=== PATIENT | male | born 1945 | race Caucasian/White ===

== ENCOUNTER 2024-11-04 13:03 | Outpatient (AMB) | payer OTHER, SELFPAY ==
[2024-11-04 13:18] VITALS: BP 130/70; PULSE 44; RESP 17; TEMP 36.6; O2SAT 97; BMI 31.3
--- NOTE | 2024-11-04 13:18 | MHC.OFFWIV ---
Intake Vital Signs 11/04/24 13:18 Height 5 ft 10 in Weight 218 lb BMI 31.3 BP 130/70 Blood Pressure Location Rt brachial Position Sitting Respiration 17 Pulse 44 L Pulse Source Pulse Oximeter Temp 97.8 F Temp Source Oral Pulse Oximetry (%) 97 Oxygen Delivery Method Room Air Intake Visit Reasons: EP Blood in urine Intake Note: Pt is here today c/o blood in urine ? patient thinks is a kidney stone Patient Tobacco Use Status: Never used Tobacco Allergies No Known Allergies Allergy (Verified 11/04/24 13:21) HPI HPI Comments History of Present Illness Details History of Present Illness - The patient is a 78-year-old male presenting with hematuria. - Hematuria onset was the previous day. - Patient has a history of renal calculi, with known episodes of passing small stones over the past 4-5 years, last occurring about a year ago. he did not seek medical attention for these episodes and passed them at home. - The patient describes the current discomfort as consistent with previous kidney stone experiences. - There is no significant back or flank pain currently; discomfort is localized towards the lower abdomen with urination. - No lithotripsy procedures have been required historically as stones were passed spontaneously. - He does not smoke cigarettes, and never has smoked cigarettes, he also was never in [place]/exposed to agent orange - he does not recall any cardiac issues or ever being told he had bradycardia, he states he has a hx of SVT and maybe something else, possibly RBBB, seen on EKG when he was younger. He denies chest pain, back pain or arm pain, nausea, sweating. - The patient reported challenges in physical activities, connected neither to dizziness nor lightheadedness, indicating reduced physical strength. - Has not seen a doc in many years, has an appt to establish care with [facility] in February. 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 He does not take any medications on a daily basis, just and occasional aspirin Physical Exam General: Cooperative, healthy appearing, comfortable, no acute distress and well developed Orientation: Patient oriented x3 Limitations: No limitations Head: Normal to inspection Ears: Hearing grossly normal bilaterally Nose: Normal external nose present Face and sinus: Normal facial exam Eyes: Appearance normal, both eyes and all related structures Neck: Normal visual inspection and Yes full ROM Respiratory: Normal respiratory effort and able to speak in complete sentences. Clear to auscultation bilaterally Cardiovascular: Regular rate and rhythm. Normal S1 and S2 Skin: No rashes or lesions noted Neuro: Patient oriented x3 Extremities: Normal to inspection [facility] Social History Patient Tobacco Use Status: Never used Tobacco Review of Systems Const All systems reviewed & are unremarkable except as noted in HPI and below Physical Exam Vital Signs: Last Vital Signs Temp 97.8 F 11/04/24 13:18 Pulse 44 L 11/04/24 13:18 Resp 17 11/04/24 13:18 BP 130/70 11/04/24 13:18 Pulse Ox 97 11/04/24 13:18 Oxygen Delivery Method Room Air 11/04/24 13:18 BMI result Body Mass Index 31.3 Office Procedures EKG 86144-[id number], Complete Results AMB Urinalysis, Automated UA Leukoctes 0 Arvind/uL Last Edit by Sierra Crocker CMA on 11/04/24 13:28 UA Nitrite Negative Last Edit by Sierra Crocker CMA on 11/04/24 13:28 UA Urobilinogen 0.2 mg/dL Last Edit by Sierra Crocker CMA on 11/04/24 13:28 UA Protein 30 mg/dL Last Edit by Sierra Crocker CMA on 11/04/24 13:28 UA pH 6.0 Last Edit by Sierra Crocker CMA on 11/04/24 13:28 UA Blood 200 Augusto/uL Last Edit by Sierra Crocker CMA on 11/04/24 13:28 UA Specific [place] 1.020 Last Edit by Sierra Crocker CMA on 11/04/24 13:28 UA Ketone Negative Last Edit by Sierra Crocker CMA on 11/04/24 13:28 UA Bilirubin 0 mg/dL Last Edit by Sierra Crocker CMA on 11/04/24 13:28 UA Glucose 0 mg/dL Last Edit by Sierra Crocker CMA on 11/04/24 13:28 Results Reviewed Results Reviewed: Laboratory Last Values Urine pH (Auto) 6.0 11/04/24 13:18 Specific [place] (Auto) 1.020 11/04/24 13:18 Urine Protein (Auto) 30 mg/dL 11/04/24 13:18 Glucose (UA)(Auto) 0 mg/dL 11/04/24 13:18 Urine Ketones (Auto) Negative 11/04/24 13:18 Urine Blood (Auto) 200 Augusto/uL 11/04/24 13:18 Urine Nitrite (Auto) Negative 11/04/24 13:18 Urine Bilirubin (Auto) 0 mg/dL 11/04/24 13:18 Urine Urobilinogen (Auto) 0.2 mg/dL 11/04/24 13:18 Leukocyte Esterase (Auto) 0 Arvind/uL 11/04/24 13:18 Assessment & Plan Assessment & Plan (1) Hematuria: Code(s): R31.9 - Hematuria, unspecified Qualifiers: Hematuria type: unspecified type Qualified Code(s): R31.9 - Hematuria, unspecified Plan: Urinalysis is negative for infection, I have no suspicion there is an infection based on his story. My suspicions is more likely a kidney stone with 3+ blood on the urinalysis, as well as based on his history. recommended patient seek emergent medical attention if he is unable to pass urine, if his pain gets worse or if he develops a fever. (2) Bradycardia: Code(s): R00.1 - Bradycardia, unspecified Plan: pulse ox reflected a heart rate of 42, EKG reflects a rate of 67 with PVCs, auscultation was clear he was not at a rate of 40, and was likely more in the 60s. I am thinking the PVCs may have thrown off the pulse ox. EKG shows sinus rhythm with occasional PVCs, a right bundle branch block rate of 67 beats per minute. no acute ST or T-wave changes. as he is not currently having any chest pain, shortness of breath, headaches dizziness or other symptoms, right bundle branch block is likely old and not an indication of an [place]. I was able to move his primary care doctor's appointment up from February 08 next week so he can get a thorough health assessment as well as follow up on both of these issues Orders: Orders AMB Urinalysis Automated Today Z13.9 - Encounter for screening, unspecified Coding Level of Care Code Est Pt Level 4 (49260) Diagnoses Hematuria, unspecified type R31.9 Hematuria type: unspecified type Bradycardia R00.1 CPT Codes EKG - CPT: 35938-[id number], Complete ([id number])
== END 2024-11-04 14:22 | disposition home or self-care (01) ==
PROVIDERS: Visit Provider Physician Assistant
DX: R31.9 Hematuria, unspecified (principal); R00.1 Bradycardia, unspecified; Z13.9 Encounter for screening, unspecified

== ENCOUNTER → 2024-11-04 13:03 | Outpatient (BNVA) | payer OTHER, SELFPAY | DX: R31.9 Hematuria, unspecified (principal); R00.1 Bradycardia, unspecified | CPT/HCPCS: 81003; 93005 ==

== ENCOUNTER 2024-11-17 08:46 | Outpatient (AMB) | payer OTHER, SELFPAY ==
--- NOTE | 2024-11-17 08:48 | A.OFFPC_ITS ---
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: Patient has dentist HPI HPI Comments History of Present Illness Details 78-year-old male presents to establish c are. Prior PCP? - Dr. Roxanna Swanson, [facility] Last office visit/CPE/labs - About a year ago Acute issue(s) - Arthritic shoulders: He had PT emelyn joshi and August 2024. Takes Aleve or Ibuprofen twice daily with significant relief - Diminished hearing bilaterally progres sively worsened for the past 4-5 years. Does not wear hearing aides. Has never had a hearing test - Hypothyroidism: On Levothyroxine 75 mc g daily - Intermittent swelling to bilateral low er legs/ankles especially with wearing socks for a long time Past Medical History - Hypothyroidism, SVT, bradycardia, [place] turia, arthritic shoulders, spine twist inside of pelvis, bronchitis, mononucleosis, acute infectious hepatitis, measles, chicken pox, swelling of bilat lower legs/ankles, self-diagnosed ADHD and audio procdessing disorder 20-25 years ago Surgical History - Right total hip replacement - Surgical repair of blocked intenstine (2013 at [facility]) Family History - None (patient is adopted and does not know family history) Social History - Nonsmoker. Does not vape. Drinks 4 oz red night 5 nights weekly. Denies recreational drug use - Has been making healthy dietary choice s, however, he consumes significant amount of peanut butter, chips, and cheese. Exercises routinely. Generally sleep well Health maintenance - Last eye exam was 2-[address] El, [facility]. Record not available. He will sign a release for his PCP to obtain his eye record - Last dental visit was 4 months ago. He sees his dentist every 6 months - Last tetanus vaccine was in 1971 or ; declines the vaccine today - He notes that he is up-to-date on the flu vaccine - He notes that he is up-to-date on the pneumonia vaccines - He has not been vaccinated for shingle s; encouraged to get the vaccines. He may get the vaccines from the local pharmacy - Last colonoscopy was about 8-9 years a go, unsure of practice name but notes likely [facility] Medical: normal. Referred to [facility] gastroenterology for a colonoscopy [facility] Medical History (Updated 11/17/24 @ 11:31 by Virgilio Salazar CNP) Spine disorder Swelling Arthritis FH: thyroid disease SVT (supraventricular tachycardia) Surgical History (Updated 11/17/24 @ 09:16 by Sandee Haskins MA) History of right hip replacement Social History Housing: House Patient Tobacco Use Status: Never used Tobacco e-Cigarette/Vaping Use: Never Used Second Hand Smoke Exposure: No service: No Current occupational status: retired Cognitive needs: No Hearing needs: No Vision needs: No Questionnaire PHQ-9 Over the last 2 weeks, how often have you been bothered by any of the following problems? 1. Little interest or pleasure in doing things: not at all 2. Feeling down, depressed, or hopeless: not at all 3. Trouble falling or staying asleep, or sleeping too much: not at all 4. Feeling tired or having little energy: not at all 5. Poor appetite or overeating: not at all 6. Feeling bad about yourself - or that you are a failure or have let yourself or your family down: not at all 7. Trouble concentrating on things, such as reading the newspaper or watching television: not at all 8. Moving or speaking so slowly that other people could have noticed. Or the opposite - being so fidgety or restless that you have been moving around a lot more than usual: not at all 9. Thoughts that you would be better off or of hurting yourself in some way: not at all Total score: 0 Depression Screening Interpretation: Negative Depression Screening Done: Yes 45615 - PHQ-9 Billing: Yes Source: Developed by Drs. Mehlu Ndiaye, Keturah Garcia, Samuel Us and colleagues, with an educational ronald from [employer]. Thrive Questionnaire Date Thrive assessed: 11/17/24 I am a: Patient What is your living situation today?: I have a steady place to live Within the past 12 months, did the food you bought not last and you didn't have the money to get more?: Never true Within the past 12 months, did you worry whether your food would run out before you got money to buy more?: Never true Do you have trouble paying for medicines?: No Do you have trouble getting transportation to medical appointments?: No Do you have trouble paying your heating and electricity bill?: No Do you have trouble taking care of your child, family member or friend?: No Do you have trouble with day-to-day activities such as bathing, preparing meals, shopping, managing finances, etc.?: No Are you currently unemployed and looking for a job?: No Are you interested in more education?: No Please select the resources that you would like help with: None Currently or been in a relationship where the following occur: No concerns reported THRIVE Score: 0 AUDIT C Alcohol Use Questionnaire (AUDIT-C) 1. How often do you have a drink containing alcohol?: 4 or more times a week 2. How many drinks containing alcohol do you have on a typical day when you are drinking?: 1 or 2 3. How often do you have six or more drinks on one occasion?: Never Total Score: 4 Score Reviewed/Action Taken: Yes VIKI-7 AMB Questionnaire VIKI-7 Date VIKI - 7 assessed: 11/17/24 Feeling nervous, anxious, or on edge: 0 = Not at all Not being able to stop or control worryin = Not at all Worrying too much about different things: 0 = Not at all Trouble relaxin = Not at all Being so restless that it is hard to sit still: 0 = Not at all Becoming easily annoyed or irritable: 0 = Not at all Feeling afraid as if something awful might happen: 0 = Not at all Total VIKI-7 score (0-4 normal; 5-9 mild; 10-14 moderate; 15-21 severe): 0 Source: Developed by Drs. Mehul Ndiaye, Keturah Garcia, Samuel Us and colleagues, with an educational ronald from [employer]. VIKI-7 Assessment Billing VIKI-7 Assessment Tool: VIKI-7 Assessment 87028 Review of Systems Const Details: Denies chills, Denies fatigue, Denies fever(s), Denies headache(s) and Denies weakness HEENT Denies change in vision, Denies dizziness, Denies headache(s), Reports hearing loss, Denies nasal congestion, Denies sinus pain, Denies sinus pressure and D enies sore throat Card Denies chest pain, Denies lightheadedness, Denies dyspnea and Denies other (palpitations) Resp Denies cough, Denies dyspnea and Denies wheezing GI Denies abdominal pain, Denies melena, Denies hematochezia, Denies change in bowel habits, Denies dyspepsia and Denies nausea Denies hematuria and Denies dysuria Musc Denies abnormal gait, Denies myalgias, Denies arthralgias, Denies numbness and Denies tingling Skin/Breast Denies rash, Denies unusual bruising and Denies wounds Neuro Denies abnormal gait, Denies dizziness, Denies headache(s), Denies memory loss, Denies numbness, Denies Sensory deficit (Neuro), Denies tingling and Denies weakness Psych Denies anxiety, Denies depression and Denies memory loss Endo Denies cold intolerance, Denies fatigue, Denies heat intolerance, Denies polydipsia and Denies polyuria Aparna/Lymph Denies easy bleeding and Denies easy bruising Aller/Immun Denies wheezing Physical exam (Primary Care) Vital Signs: Last Vital Signs Temp 97.5 F 11/17/24 08:55 Pulse 65 11/17/24 08:55 Resp 16 11/17/24 08:55 BP 120/80 11/17/24 09:37 Pulse Ox 98 11/17/24 08:55 Oxygen Delivery Method Room Air 11/17/24 08:55 BMI result Body Mass Index 31.4 Tobacco/Smoking Status: Tobacco use Status Tobacco use date assessed 11/17/24 11/17/24 08:54 Patient Tobacco Use Status Never used Tobacco 11/17/24 08:51 e-Cigarette/Vaping Use Never Used 11/17/24 08:54 PHQ-9: PHQ-9 Score PHQ-9: Total score 0 11/17/24 16:48 Depression Screening Interpretation: Negative Thrive Assessment: Date of Thrive Assessment Date Thrive assessed 11/17/24 11/17/24 08:51 Currently or been in a relationship where the following occur: No concerns reported Const Other: General: no acute distress, well developed, alert and awake Nutritional Appearance: well nourished Orientation/consciousness: patient oriented x3 HENMT Head: Yes normocephalic and Yes atraumatic Ears: hearing grossly normal bilaterally and TM's normal bilaterally General nose exam: Normal external nose present and Normal nares present Mouth: Normal oral and palatal mucosa present and moist mucous membranes Teeth and gingiva: dentition normal Throat: Yes oropharynx normal Eyes Pupils: Equal, round and reactive pupils present and Pupil accommodation reflex normal EOM: EOMs intact bilaterally Neck Neck: Yes normal visual inspection, Yes no lymphadenopathy and Yes trachea midline Thyroid: Thyroid normal Carotids: no bruits Lymphatic: no lymphadenopathy noted Chest Chest palpation & inspection: normal inspection of the chest Resp Effort & Inspection: normal respiratory effort Auscultation: clear to auscultation bilaterally Cardio Rate: regular rate Rhythm: Regularly irregular Heart sounds: S1 normal heart sound present, S2 normal heart sound present, no gallops, no murmurs and no rubs Bruits: no abdominal aortic bruits and no carotid bruits GI Palpation (GI): No Abdominal aortic bruit present, Soft to palpation, nontender, No hepatosplenomegaly present and No Rebound tenderness present Auscultation: normal bowel sounds General: Yes no CVA tenderness Back/Spine/Pelvis Back: no CVA tenderness Cervical Spine: cervical ROM normal and No Cervical spine tenderness Thoracic/Lumbar Spine: thoraco-lumbar ROM normal, No pain with thoraco-lumbar ROM, No thoracic spinal tenderness and No lumbar spinal tenderness Skin General: warm and dry. Normal skin color. Normal skin turgor Lesions: no lesions Rashes: no rashes Trauma: no lacerations or abrasions Wounds: no wounds Nails: normal Neuro General: patient oriented x3, gait normal and CN's II-XI intact bilaterally Cranial nerves: Yes Equal, round and reactive pupils present Cognition (Neuro): normal cognition Gait exam (Neuro): Normal gait present Motor exam (neuro): 5/5 motor strength present throughout Sensory Exam: No Sensory deficit (Neuro) Deep tendon reflexes (DTR's): Right patellar reflex intensity grade: 2+ and Left patellar reflex intensity grade: 2+ Extrem General: Yes normal to inspection, No edema and No calf tenderness. Limited ROM of both shoulders Psych Appearance: grossly normal Affect: normal affect Attitude: cooperative Thought process: Normal thought process present Office Procedures EKG Details: EKG in office revealed sinus rhythm with frequent PVCs bigeminy and right bundle-branch block [id number]-[id number], Complete Coding Level of Care Code New Pt Level 4 (81291) New Pt Prev Care >65yr (95481) Diagnoses Normal physical examination, routine Z00.00 Hypothyroidism E03.9 Arrhythmia I49.9 Arthritis of both shoulders M19.011; M19.012 Obesity (BMI 30-39.9) E66.9 Colon cancer screening Z12.11 Prostate cancer screening Z12.5 Vaccine counseling Z71.85 Decreased hearing of both ears H91.93 Lower extremity edema R60.0 Laboratory tests ordered as part of a complete physical exam (CPE) Z00.00 CPT Codes EKG - CPT: 11398-[id number], Complete ([id number]) Additional Codes VIKI-7 Assessment Billing - VIKI-7 Assessment Tool: VIKI-7 Assessment 49171 ([id number]) PHQ-9 - 56043 - PHQ-9 Billing: Yes ([id number]) Assessment & Plan Assessment & Plan (1) Normal physical examination, routine: Code(s): Z00.00 - Encounter for general adult medical examination without abnormal findings Category: Medical Plan: No significant functional limitation noted. Continue current treatment regimen. Perform lab work and follow-up for telehealth visit in 2-3 weeks for labs review. Return sooner with symptoms or concerns. Verbalized understanding and agreed with treatment plan. (2) Hypothyroidism: Code(s): E03.9 - Hypothyroidism, unspecified Category: Medical Plan: He is on levothyroxine 75 mcg daily; continue as prescribed. Will check TSH/T4 level and make changes as needed. Verbalized understanding and agreed with the plan. (3) Arrhythmia: Code(s): I49.9 - Cardiac arrhythmia, unspecified Category: Medical Plan: EKG in office revealed sinus rhythm with frequent PVCs bigeminy and right bundle-branch block; patient notes history of these for several years. Heart regular rate, rhythm is irregularly irregular. No acute symptoms at this time. Referred to [facility] Cardiology. Follow-up with symptoms or concerns. Verbalized understanding and agreed with the plan. (4) Arthritis of both shoulders: Code(s): M19.011 - Primary osteoarthritis, right shoulder; M19.012 - Primary osteoarthritis, left shoulder Category: Medical Plan: Limited ROM of both shoulders. No edema, erythema, or overt injury or trauma. He had PT between July and August 2024. He takes Aleve or Ibuprofen twice daily with significant relief; encouraged to continue current treatment. Warm/cool compresses encouraged. Follow-up with worsening or new symptoms. Verbalized understanding and agreed with treatment plan. (5) Obesity (BMI 30-39.9): Code(s): E66.9 - Obesity, unspecified Category: Medical Plan: He has been making healthy dietary choices, however, he consumes significant amount of peanut butter, chips, and cheese. He exercises routinely. He currently weighs 219 lb, BMI is 31.4. Declines referral to a dietitian/fur glazer and notes he will improve his diet and continue routine exercise. Healthy diet and routine exercise encouraged. Will refer to dietitian/fur glazer as needed. Verbalized understanding and agreed with treatment plan. (6) Colon cancer screening: Code(s): Z12.11 - Encounter for screening for malignant neoplasm of colon Category: Medical Plan: Last colonoscopy was about 8-9 years ago, unsure of practice name but notes likely [facility] Medical: normal. Referred to [facility] gastroenterology for a colonoscopy. (7) Prostate cancer screening: Code(s): Z12.5 - Encounter for screening for malignant neoplasm of prostate Category: Medical Plan: PSA lab ordered. (8) Vaccine counseling: Code(s): Z71.85 - Encounter for immunization safety counseling Category: Medical Plan: His last tetanus vaccine was in 1971 or 1972; declines the vaccine today. Instructed on importance of the tetanus vaccines and encouraged to get the vaccine. He has not been vaccinated for shingles; encouraged to get the vaccines. He may get the vaccines from the local pharmacy. (9) Decreased hearing of both ears: Code(s): H91.93 - Unspecified hearing loss, bilateral Category: Medical Plan: Diminished hearing bilaterally progressively worsened for the past 4-5 years. He does not wear hearing aides and has never had a hearing test. Normal bilateral ear exam. Referred to audiology for hearing test. (10) Lower extremity edema: Code(s): R60.0 - Localized edema Category: Medical Plan: intermittent swelling to bilateral lower legs/ankles especially with wearing socks for a long time. Bilateral lower legs and ankle normal; no edema present at this time. Advised to avoid wearing tight fitted socks. Also avoid prolonged standing or walking. Elevate bilateral lower extremities to improve swelling. Follow-up with worsening or new signs and symptoms. Verbalized understanding and agreed with treatment plan. (11) Laboratory tests ordered as part of a complete physical exam (CPE): Code(s): Z00.00 - Encounter for general adult medical examination without abnormal findings Category: Medical Plan: Fasting labs ordered as part of a complete physical exam. Advised to fast for at least 10 hours before getting labs drawn. May drink water Verbalized understanding and agreed with treatment plan. Orders: Orders AMB EKG-In Office 11/17/24 I49.9 - Cardiac arrhythmia, unspecified Microalbumin, Random (w Creat) 11/17/24 Z. - Encounter for general adult medical examination without abnormal findings UA CC w/rflx Micro + Cult 11/17/24 Z. - Encounter for general adult medical examination without abnormal findings Vitamin D 25-OH Total 11/17/24 Z. - Encounter for general adult medical examination without abnormal findings Complete Blood Count Auto Diff 11/17/24 Z00.00 - Encounter for general adult medical examination without abnormal findings Comprehensive [place]. Panel Fast 11/17/24 Z. - Encounter for general adult medical examination without abnormal findings Lipid Panel 11/17/24 Z. - Encounter for general adult medical examination without abnormal findings TSH reflex Free T4 11/17/24 Z00.00 - Encounter for general adult medical examination without abnormal findings PSA, Ultra Sensitive 11/17/24 Z. - Encounter for general adult medical examination without abnormal findings Referrals Gastroenterology Referral Z12.11 - Encounter for screening for malignant neoplasm of colon Cardiology Referral I49.9 - Cardiac arrhythmia, unspecified Audiology Referral H91.93 - Unspecified hearing loss, bilateral
[2024-11-17 08:55] VITALS: BP 143/63; PULSE 65; RESP 16; TEMP 36.4; O2SAT 98; BMI 31.4
[2024-11-17 09:37] VITALS: BP 120/80
== END 2024-11-17 11:47 | disposition home or self-care (01) ==
LOC: HO.HMCFM 08:46
PROVIDERS: PCP Nurse Practitioner Family; Visit Provider Nurse Practitioner Family
DX: Z00.00 Encounter for general adult medical examination without abnormal findings (principal); I49.9 Cardiac arrhythmia, unspecified; M19.011 Primary osteoarthritis, right shoulder; H91.93 Unspecified hearing loss, bilateral; E03.9 Hypothyroidism, unspecified; M19.012 Primary osteoarthritis, left shoulder; E66.9 Obesity, unspecified; R60.0 Localized edema; Z12.11 Encounter for screening for malignant neoplasm of colon; Z12.5 Encounter for screening for malignant neoplasm of prostate; Z71.85 Encounter for immunization safety counseling

== ENCOUNTER → 2024-11-17 08:46 | Outpatient (BNVA) | payer OTHER, SELFPAY | PROVIDERS: PCP Nurse Practitioner Family; Visit Provider Nurse Practitioner Family | DX: Z00.00 Encounter for general adult medical examination without abnormal findings (principal); E03.9 Hypothyroidism, unspecified; I49.9 Cardiac arrhythmia, unspecified; M19.011 Primary osteoarthritis, right shoulder; M19.012 Primary osteoarthritis, left shoulder; E66.9 Obesity, unspecified; Z68.31 Body mass index [BMI] 31.0-31.9, adult; H91.93 Unspecified hearing loss, bilateral; R60.0 Localized edema; Z79.899 Other long term (current) drug therapy; Z71.85 Encounter for immunization safety counseling | CPT/HCPCS: 93005; 96127 ==

== ENCOUNTER 2024-12-01 08:11 | Outpatient (REF) | payer OTHER, SELFPAY ==
[2024-12-01 08:43] LABS: MANUAL DIFF FLAG NO
[2024-12-01 08:56] LABS: Basophils Percent Auto 0.4 % (0-2); Eosinophils Absolute Auto 0.2 X10*3/uL (0.0-0.4); Eosinophils Percent Auto 4.3 % (0-4); Hematocrit 43.4 % (42.0-52.0); Hemoglobin 14.8 g/dl (14.0-18.0); Imm Gran Abs Auto 0.01 X10*3/uL (0.00-0.03); Imm Gran Pct Auto 0.2 % (0.0-0.4); Lymphocytes Absolute Auto 1.6 X10*3/uL (1.2-4.9); Lymphocytes Percent Auto 33.3 % (20-40); Mean Corpuscular HGB Conc 34.1 g/dl (31.0-36.0); Mean Corpuscular Hemoglobin 33.7 pg (27.0-33.0); Mean Corpuscular Volume 98.9 fL (80.0-98.0); Mean Platelet Volume 10.8 fL (9.4-12.4); Monocytes Absolute Auto 0.5 X10*3/uL (0.1-1.2); Monocytes Percent Auto 10.7 % (2-11); Neutrophils Absolute Auto 2.4 x10*3/uL (2.0-8.3); Neutrophils Percent Auto 51.1 % (45-73); Platelet Count 194 X10*3/uL (160-400); Red Blood Count 4.39 X10*6/uL (4.60-5.80); White Blood Count 4.7 X10*3/uL (4.8-10.8)
[2024-12-01 09:13] LABS: Appearance Urine Clear; Color Urine Yellow; Glucose Urine UA Negative (Negative); Leukocyte Esterase Urine Trace (Negative); Nitrite Urine Negative (Negative); PH 7.5 (5.0-9.0); Specific Gravity - Urine 1.025 (1.005-1.025); UMIC TRIGGER UACC YES; Urine Blood Negative (Negative); Urine Ketones Negative (Negative); Urine Protein Negative (Neg-Trace)
[2024-12-01 09:18] LABS: Bacteria Urine None Seen (None Seen); Hyaline Casts Urine 0-2 /LPF (0-2); RBC Urine 0-2 /HPF (0-2); Squamous Epithelial Cell Urine 0-2 /HPF (0-2); WBC Urine 0-5 /HPF (0-5)
[2024-12-01 09:54] LABS: Creatinine Urine 130.84 mg/dL; Microalbum/Creatinine Ratio Ur 8.4 ug/mg cr (<30)
[2024-12-01 09:56] LABS: Alanine Aminotransferase 20 U/L (0-40); Alkaline Phosphatase 67 U/L (39-117); Anion Gap 9 (12-20); Aspartate Amino Transferase 20 U/L (5-37); Bilirubin Total 0.7 mg/dL (0.0-1.0); Blood Urea Nitrogen 28 mg/dL (9-16); Calcium 9.4 mg/dL (8.4-10.2); Carbon Dioxide 30 mmol/L (22-29); Chloride 109 mmol/L (96-108); Cholesterol 162 mg/dL (<200); Estimated Glomerular Filt Rate > 60; Glucose Fasting 97 mg/dL (60-99); HDL Cholesterol 60 mg/dL (>40); LDL Cholesterol Calculated 93 mg/dL (<100); Potassium 4.7 mmol/L (3.3-5.1); Sodium 143 mmol/L (135-145); Total Protein 6.8 g/dL (6.5-8.0); Triglycerides 45 mg/dL (<150); Vitamin D 25-OH Total 46.5 ng/mL (>30)
== END 2024-12-01 08:12 | disposition home or self-care (01) ==
LOC: HO.LAB 08:11
PROVIDERS: PCP Nurse Practitioner Family; Visit Provider Nurse Practitioner Family
DX: Z00.00 Encounter for general adult medical examination without abnormal findings (principal); Z12.5 Encounter for screening for malignant neoplasm of prostate
CPT/HCPCS: 36415; 80053; 80061; 81001; 82043; 82306; 82570; 84153; 84443; 85025

== ENCOUNTER 2024-12-04 13:17 | Outpatient (AMB) | payer OTHER, SELFPAY ==
--- NOTE | 2024-12-04 13:11 | MHC.PC.OV ---
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 Allergies No Known Allergies Allergy (Verified 12/04/24 14:45) Medication List - Last Reconciled 12/04/24 by Virgilio Salazar CNP levothyroxine mcg PO Tobacco use date assessed: 12/04/24 Fall risk assessment: No Falls in past year Last assessed Fall Risk: 12/04/24 Dental Screening Dental Screen Date: 12/04/24 Did you have a dental visit in the last 12 months?: Yes Did you have a dental problem in the last 6 months where you did not have access to dental care?: No Was dental information given to patient?: Patient has dentist HPI HPI Comments History of Present Illness Details 78-year-old male presents for telehealth visit for review of recent lab results. He offers no complaints and denies acute symptoms at this time. [facility] Medical History (Updated 12/04/24 @ 14:51 by Virgilio Salazar CNP) Spine disorder Swelling Arthritis FH: thyroid disease SVT (supraventricular tachycardia) Surgical History (Updated 11/17/24 @ 09:16 by Sandee Haskins MA) History of right hip replacement Social History Housing: House Patient Tobacco Use Status: Never used Tobacco e-Cigarette/Vaping Use: Never Used Second Hand Smoke Exposure: No service: No Current occupational status: retired Cognitive needs: No Hearing needs: No Vision needs: No Questionnaire Thrive Questionnaire Date Thrive assessed: 11/17/24 I am a: Patient What is your living situation today?: I have a steady place to live Within the past 12 months, did the food you bought not last and you didn't have the money to get more?: Never true Within the past 12 months, did you worry whether your food would run out before you got money to buy more?: Never true Do you have trouble paying for medicines?: No Do you have trouble getting transportation to medical appointments?: No Do you have trouble paying your heating and electricity bill?: No Do you have trouble taking care of your child, family member or friend?: No Do you have trouble with day-to-day activities such as bathing, preparing meals, shopping, managing finances, etc.?: No Are you currently unemployed and looking for a job?: No Are you interested in more education?: No Please select the resources that you would like help with: None Currently or been in a relationship where the following occur: No concerns reported THRIVE Score: 0 VIKI-7 AMB Questionnaire VIKI-7 Date VIKI - 7 assessed: 11/17/24 Source: Developed by Drs. Mehul Ndiaye, Keturah Garcia, Samuel Us and colleagues, with an educational ronald from [employer]. Review of Systems Const Details: Denies chills, Denies fatigue, Denies fever(s), Denies headache(s) and Denies weakness Cardiac Denies chest pain, Denies claudication, Denies leg edema, Denies lightheadedness, Denies palpitations, Denies dyspnea, Denies dyspnea on exertion, Denies orthopnea and Denies other (Loss of consciousness) Resp Denies cough, Denies excessive phlegm production, Denies dyspnea, Denies dyspnea on exertion, Denies snoring and Denies wheezing Physical exam (Primary Care) Tobacco/Smoking Status: Tobacco use Status Tobacco use date assessed 12/04/24 12/04/24 13:16 Patient Tobacco Use Status Never used Tobacco 12/04/24 13:16 e-Cigarette/Vaping Use Never Used 12/04/24 13:16 Thrive Assessment: Date of Thrive Assessment Date Thrive assessed 11/17/24 12/04/24 13:16 Currently or been in a relationship where the following occur: No concerns reported Telehealth Telehealth Telehealth Platform: Telephone Location of provider rendering services: practice address Location of patient: address on file Patient Identification confirmed using: Name, : Yes Telehealth method: voice only Patient verbally consented to treatment: Yes Patient verbally consented to billing insurance company: Yes Patient informed of any privacy concerns related to visit: Yes Coding Level of Care Code Tele Est Pt Level 3 (34753) Diagnoses Hypothyroidism E03.9 Leukopenia D72.819 Time Spent (min) 10 Assessment & Plan Assessment & Plan (1) Hypothyroidism: Code(s): E03.9 - Hypothyroidism, unspecified Category: Medical Plan: Continue to take levothyroxine as prescribed. Performed TSH/T4 blood work before next visit. Follow-up for telehealth visit in 4 months or sooner with symptoms or concerns. Verbalized understanding and agreed with treatment plan. (2) Leukopenia: Code(s): D72.819 - Decreased white blood cell count, unspecified Category: Medical Plan: Recent WBC is slightly low, 4.7. Unequivocal. Will check vitamin B12 and folate levels and make changes as needed. Verbalized understanding and agreed with the plan. Orders: Orders TSH reflex Free T4 4 Months E03.9 - Hypothyroidism, unspecified Medications: Changed From levothyroxine PO To levothyroxine 75 mcg PO DAILY 90 days 90 tabs 1RF
== END 2024-12-04 15:00 | disposition home or self-care (01) ==
LOC: HO.HMCFM 13:17
PROVIDERS: PCP Nurse Practitioner Family; Visit Provider Nurse Practitioner Family
DX: E03.9 Hypothyroidism, unspecified (principal); D72.819 Decreased white blood cell count, unspecified

== ENCOUNTER → 2024-12-04 13:17 | Outpatient (BNVA) | payer OTHER, SELFPAY | PROVIDERS: PCP Nurse Practitioner Family; Visit Provider Nurse Practitioner Family ==

== ENCOUNTER 2024-12-11 07:55 | Outpatient (REF) | payer MEDICARE, SELFPAY ==
[2024-12-11 09:29] LABS: TSH reflex Free T4 2.68 uIU/mL (0.32-4.0)
== END 2024-12-11 07:56 | disposition home or self-care (01) ==
LOC: HO.LAB 07:55
PROVIDERS: PCP Nurse Practitioner Family; Visit Provider Nurse Practitioner Family
DX: Z00.00 Encounter for general adult medical examination without abnormal findings (principal); E03.9 Hypothyroidism, unspecified
CPT/HCPCS: 36415; 84443

== ENCOUNTER 2025-03-29 11:21 | Outpatient (REF) | payer MEDICARE, SELFPAY ==
[2025-03-29 13:15] LABS: Folate 19.4 ng/mL (> or = 4.0); Vitamin B12 790 pg/mL (200-900)
== END 2025-03-29 11:22 | disposition home or self-care (01) ==
LOC: HO.LAB 11:21
PROVIDERS: PCP Nurse Practitioner Family; Visit Provider Nurse Practitioner Family
DX: E03.9 Hypothyroidism, unspecified (principal); D72.819 Decreased white blood cell count, unspecified
CPT/HCPCS: 36415; 82607; 82746; 84443

== ENCOUNTER 2025-04-13 12:53 | Outpatient (AMB) | payer MEDICARE, SELFPAY ==
[2025-04-13 13:04] VITALS: BP 116/68; PULSE 64; BMI 31.0
--- NOTE | 2025-04-13 13:04 | A.OFFVIS_ITS ---
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 At that time he was advised vagal maneuvers and that has pretty much controlled his arrhythmias and he has not been on medications. He said the last arrhythmias were 10-15 years ago. Since then frequent PVCs in bigeminal pattern. He has no clear symptoms related to it. He denies any skipped heartbeats or strong heartbeats or fluttering in his chest. Denies any lightheadedness, syncope. He said he has walks about 2-3 miles every day with his and has no symptoms exertional chest pain or shortness of breath. He also has history of right bundle-branch block and on today's EKGs shows bifascicular block. He has no prior history of hypertension, diabetes, coronary artery disease or valvular heart disease. No known history of sarcoidosis. Patient comes for further evaluation for these changes. [facility] Medical History Spine disorder Swelling Arthritis FH: thyroid disease SVT (supraventricular tachycardia) Surgical History History of right hip replacement Social History Housing: House Patient Tobacco Use Status: Never used Tobacco e-Cigarette/Vaping Use: Never Used Second Hand Smoke Exposure: No service: No Current occupational status: retired Cognitive needs: No Hearing needs: No Vision needs: No Review of Systems Const Denies chills, Denies daytime sleepiness, Denies fatigue, Denies fever(s), Denies frequent falls, Denies poor appetite, Denies snoring, Denies stops breathing during sleep, Denies weakness, Denies weight gain and Denies weight loss Eyes Denies loss of vision ENT Denies dizziness and Denies hearing loss Card Denies chest pain, Denies claudication, Denies leg edema, Denies l ightheadedness, Denies palpitations, Denies dyspnea, Denies dyspnea on exertion and Denies orthopnea Resp Denies cough, Denies excessive phlegm production, Denies dyspnea, Denies dyspnea on exertion, Denies snoring and Denies wheezing GI Denies abdominal pain, Denies hematochezia, Denies change in bowel habits, Denies nausea and Denies vomiting Denies dysuria and Denies urinary frequency Musc Denies arthralgias, Denies muscle weakness, Denies numbness and Denies other (frequent falls) Skin/Breast Denies nail changes and Denies rash Neuro Denies Abnormal speech present, Denies dizziness, Denies frequent falls, Denies loss of vision, Denies memory loss, Denies numbness and Denies weakness Psych Denies depression and Denies memory loss Endo Denies fatigue and Denies palpitations Lopez/Lymph Reports easy bruising and Reports other (anemia) Aller/Immun Denies wheezing Physical Exam Vital Signs: Last Vital Signs Pulse 64 04/13/25 13:04 BP 116/68 04/13/25 13:04 BMI result Body Mass Index 31.0 Const General: cooperative, comfortable, no acute distress, alert, awake and well groomed Nutritional Appearance: overweight Limitations: no limitations HEENT Head: Yes normocephalic and Yes atraumatic Neck Neck: Yes trachea midline, Yes supple and Yes no JVD Resp Effort & Inspection: normal respiratory effort Auscultation: clear to auscultation bilaterally Cardio Jugular venous distension: no JVD Rate: regular rate Rhythm: regular rhythm Heart sounds: S1 normal heart sound present, S2 normal heart sound present, no click, no gallops, no murmurs and no rubs GI Auscultation: normal bowel sounds Skin General skin exam: no rashes or lesions noted Neuro General: no focal motor deficits Speech: No Abnormal speech present Extrem General: Yes no clubbing, cyanosis or edema Psych Appearance: grossly normal Office Procedures EKG Details: EKG shows normal sinus rhythm with right bundle-branch and left posterior fascicular block consistent with bifascicular block. [id number], Complete Assessment & Plan Assessment & Plan (1) Arrhythmia: Code(s): I49.9 - Cardiac arrhythmia, unspecified Category: Medical Plan: Cardiac arrhythmias with prior history of SVT diagnose many years ago and has not had any episodes of symptoms in the last 10-15 years. Currently has PVCs noted last few times when patient has been monitor with EKG. He clearly has no symptoms. I would suggest him to undergo Holter monitor to assess for frequency of PVCs that would guide treatment. If he has more than 10% of his beats may need therapy to prevent future complications such as cardiomyopathy. (2) Bifascicular block: Code(s): I45.2 - Bifascicular block Category: Medical Plan: Bifascicular block which noted on today's EKGs suggestive of underlying conduction abnormality which is progressive. In the past he only had right bundle-branch block on his EKGs. We discussed about the pathophysiology of bifascicular block. This can often be idiopathic at his age but other causes in cludes calcific aortic valve disease and/or infiltrative cardiac disease. Will suggest an echocardiogram to assess for cardiac structure and function. These tests will be scheduled in near future. Further follow-up based on the findings. Otherwise will follow up in the clinic in 1 year's time with the EKG. Thank you for allowing me to partake in his care Orders: Orders ECG 7 day holter monitor Today I49.9 - Cardiac arrhythmia, unspecified CA echo transthoracic complete Today I45.2 - Bifascicular block Coding Level of Care Code New Pt Level 4 (85171) Complex EM visit Add On G2211 Diagnoses Arrhythmia I49.9 Bifascicular block I45.2 CPT Codes EKG - CPT: 25399-[id number], Complete ([id number])
== END 2025-04-13 13:51 | disposition home or self-care (01) ==
LOC: HO.HCS 12:54
PROVIDERS: PCP Nurse Practitioner Family; Visit Provider Internal Medicine Cardiovascular Disease
DX: I49.9 Cardiac arrhythmia, unspecified (principal); I45.2 Bifascicular block
CPT/HCPCS: 93010; 99204; G2211

== ENCOUNTER → 2025-04-13 12:53 | Outpatient (BNVA) | payer MEDICARE, SELFPAY | PROVIDERS: PCP Nurse Practitioner Family; Visit Provider Internal Medicine Cardiovascular Disease | DX: I45.2 Bifascicular block (principal); I49.9 Cardiac arrhythmia, unspecified | CPT/HCPCS: 93005; 99202 ==

== ENCOUNTER 2025-04-23 14:16 | Outpatient (AMB) | payer MEDICARE, SELFPAY ==
--- NOTE | 2025-04-23 14:37 | MHC.OFFVIS ---
Vital Signs 04/23/25 14:39 Height 5 ft 10 in Weight 215 lb 9.793 oz BMI 30.9 Blood Pressure Location Rt brachial Position Sitting Intake Visit Reasons: Colonoscopy Screening Intake Note: New patient in office for colonoscopy screening. CC: Per patient he sometimes gets constipation or loose stools but nothing chronic. Sometimes gets heartburn and uses TUMS. Patient reports that when he was a kid he had acute infection hepatitis. He also reports an intestinal obstruction about 9 years ago. He states that he underwent a laparoscopic surgery where scar tissue was removed from small intestine. He was also treated for H pylori he believes at that time. 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 He is referred Virgilio Denney. 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 CHAVA-[facility] records ? Pulmonary hypertension-[facility] rigors * SURGICAL HISTORY Right hip replacement Laparoscopy for surgical adhesions Colonoscopy-2006 [facility] * ALLERGIES : NKDA * [email or web address] LABS: Laboratory Tests 12/01/24 08:37 WBC 4.7 L Hgb 14.8 Hct 43.4 MCV 98.9 H MCH 33.7 H Plt Count 194 Estimated GFR > 60 Total Bilirubin 0.7 AST 20 ALT 20 Alkaline Phosphatase 67 TSH 2.30 TODAY'S VISIT This last colonoscopies were 2006 at [facility] in the about 8 or 9 years ago at [facility]. Records are no longer available. He does not remember if he had any polyps. He has a history of SVT and is currently seeing Dr. Jensen for bifascicular block and has a pending echocardiogram. He has CHAVA and uses CPAP mask. There are no prior problems with anesthesia or sedation.. NO ID problems. He is adopted and the FHX is unknown. COUNTS INCLUDE 234 BEDS AT THE [facility] Medical History (Updated 04/23/25 @ 15:19 by SHERYL Foley) Laboratory tests ordered as part of a complete physical exam (CPE) Normal physical examination, routine Vaccine counseling Prostate cancer screening Colon cancer screening Arrhythmia Spine disorder Swelling Arthritis FH: thyroid disease SVT (supraventricular tachycardia) Surgical History (Updated 04/23/25 @ 14:48 by SHERYL Foley) H/O laparoscopy H/O colonoscopy History of right hip replacement Social History (Updated 04/23/25 @ 14:43 by Dee Dee Kumar [facility]) Housing: House Alcohol intake: current Alcohol type: wine Comment: 4-5 oz wine daily Patient Tobacco Use Status: Never used Tobacco e-Cigarette/Vaping Use: Never Used Second Hand Smoke Exposure: No service: No Current occupational status: retired Cognitive needs: No Hearing needs: No Vision needs: No Review of Systems Const Denies fatigue, Denies fever(s), Denies night sweats, Denies poor appetite and Denies weight loss ENT Reports Normal hearing present, Denies dental pain, Denies dysphagia, Denies hearing loss, Denies mouth pain, Denies odynophagia, Denies throat swelling, Denies tongue swelling and Reports other (Dentition adequate) Card Reports no additional complaints Resp Reports no additional complaints GI Details: Denies abdominal pain, Denies melena, Denies bloating, Denies hematochezia, Denies constipation, Denies GI cramping, Denies dysphagia, Denies excessive flatus, Denies early satiety, Denies heartburn, Denies diarrhea, Denies nausea, Denies odynophagia, Denies vomiting and Denies hematemesis Skin/Breast Denies pruritus, Denies lesions, Denies rash and Denies jaundice Neuro Reports Normal hearing present and Denies Abnormal speech present Endo Denies fatigue Aller/Immun Denies throat swelling and Denies tongue swelling Physical Exam Vital Signs: BMI result Body Mass Index 30.9 Const General: cooperative, no acute distress, well developed and well groomed Nutritional Appearance: well nourished and obese centrally obese Orientation/consciousness: oriented to person, oriented to place and oriented to time Limitations: No language barrier HEENT Head: Yes normocephalic and Yes atraumatic Eyes General: appearance normal, both eyes and all related structures Pupils: Equal, round and reactive pupils present Neck Neck: Yes normal visual inspection and Yes no lymphadenopathy Thyroid: Thyroid normal Resp Effort & Inspection: normal respiratory effort and able to speak in complete sentences Auscultation: clear to auscultation bilaterally Cardio Rate: regular rate Rhythm: abnormal rhythm regularly irregular and with ectopic beats Heart sounds: Normal, physiologic split S2 sound present Peripheral pulses: radial pulses present and posterior tibial pulses present GI Inspection: No distended, No Abdominal panniculus present and Yes obesity Palpation (GI): Soft to palpation, nontender, no guarding and not rigid Percussion: Yes normal to percussion Auscultation: normal bowel sounds Rectal Exam - Male: Yes deferred Abdomen image:  1. surgical scars 2. 3. Skin General skin exam: no rashes or lesions noted, turgor normal, skin not dry, no jaundice, No spider nevi and no striae Rashes: no rashes Nails: normal Neuro General: oriented to person, oriented to place and oriented to time Cranial nerves: Yes Equal, round and reactive pupils present and Yes Normal hearing present Speech: No Abnormal speech present Extrem General: Yes normal to inspection, No clubbing, No cyanosis and Yes edema (rt anikle 1+pitting) Psych Appearance: grossly normal and well kempt Mental Status: mental status grossly normal Speech and movement: Normal speech and movement present Affect: normal affect Attitude: cooperative Thought process: Normal thought process present and not confabulating Thought content: Normal thought content present Insight: Good insight present (Psych) Judgement: Good judgement present (Psych) Assessment & Plan Assessment & Plan (1) Pre-op examination: Code(s): Z01.818 - Encounter for other preprocedural examination Category: Medical (2) Bifascicular block: Code(s): I45.2 - Bifascicular block Category: Medical (3) CHAVA (obstructive sleep apnea): Comment: USES CPAP Code(s): G47.33 - Obstructive sleep apnea (adult) (pediatric) Category: Medical Plan This last colonoscopies were 2007 at [facility] in the about 8 or 9 years ago at [facility]. Records are no longer available. He does not remember if he had any polyps. He has a history of SVT and is currently seeing Dr. Jensen for bifascicular block and has a pending echocardiogram. He has CHAVA and uses CPAP mask. There are no prior problems with anesthesia or sedation.. NO ID problems. He is adopted and the FHX is unknown. Orders: Orders Colonoscopy - GI Use Only 04/23/25 Z01.818 - Encounter for other preprocedural examination Medications: New bisacodyl (Dulcolax (bisacodyl)) 10 mg (2 x 5 mg) PO BEDTIME 4 tabs 0RF 2 days sod sulf-pot chloride-mag sulf 1.479-0.188- 0.225 gram (Sutab) PO PER PKG DIR for colonoscopy prep 24 tabs 0RF Coding Level of Care Code New Pt Level 3 (98005) Diagnoses Pre-op examination Z01.818 Bifascicular block I45.2 CHAVA (obstructive sleep apnea) G47.33
[2025-04-23 14:39] VITALS: BMI 30.9
== END 2025-04-23 15:36 | disposition home or self-care (01) ==
LOC: HO.HGI 14:17
PROVIDERS: PCP Nurse Practitioner Family; Visit Provider Nurse Practitioner
DX: Z01.818 Encounter for other preprocedural examination (principal); Z12.11 Encounter for screening for malignant neoplasm of colon; I45.2 Bifascicular block; G47.33 Obstructive sleep apnea (adult) (pediatric)
CPT/HCPCS: 99024

== ENCOUNTER → 2025-04-23 14:16 | Outpatient (BNVA) | payer MEDICARE, SELFPAY | PROVIDERS: PCP Nurse Practitioner Family; Visit Provider Nurse Practitioner | DX: Z01.818 Encounter for other preprocedural examination (principal); I45.2 Bifascicular block; G47.33 Obstructive sleep apnea (adult) (pediatric); Z99.89 Dependence on other enabling machines and devices | CPT/HCPCS: 99212 ==

== ENCOUNTER → 2025-06-23 09:57 | Outpatient (REF) | payer MEDICARE, SELFPAY ==
--- NOTE | 2025-06-23 09:59 | CA_ITS ---
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 Normal LV ejection fraction of 60 65% 2. Mildly dilated left atrium 3. Normal cardiac valvular Dopplers 4. Mildly dilated ascending aorta at 4 cm 5. No gross pericardial effusion Findings Procedure Information Contrast agent, definity, is being given per protocol without apparent complications. Left Ventricle Normal left ventricular size, thickness, and systolic function. The visually estimated ejection fraction is between 60-65%. Spectral Doppler is indicative of a normal filling pattern. Right Ventricle Mildly increased right ventricular cavity size. There is normal right ventricular systolic function. Atria The left atrium is mildly dilated. There is no evidence of interatrial shunt. The right atrium is normal in size. Aortic Valve There is mild thickening of the aortic valve. There is no aortic valve stenosis. There is no aortic valve regurgitation. Mitral Valve There is mild anterior and posterior mitral leaflet thickening. There is trace mitral valve regurgitation. There is no mitral valve stenosis. Pulmonic Valve The pulmonic valve was not well visualized. Tricuspid Valve Likely normal tricuspid valve structure and function. Normal right atrial pressure. Great Vessels The aorta was not well visualized. The pulmonary artery was not well visualized. There is mild dilatation of the ascending aorta measuring 4.00 cm. Venous The inferior vena cava is normal in size. Pericardium/Pleural There is no evidence of pericardial effusion. Prior Study Comparison No prior study available for comparison. Measurements 2D Linear Measurements IVSd: 0.99 0.6-0.9/0.6-1.0 cm LVIDd: 5.29 3.9-5.3/4.2-5.9 cm LVIDd Index: 2.46 2.4-3.2/2.2-3.1 cm/m2 LVIDs: 4.25 2.0-3.6 cm LVPWd: 0.79 0.7-1.1 cm LA Diam: 4.60 2.7-3.8/3.0-4.0 cm LAIDs Index: 2.14 1.5-2.3 cm/m2 LV Mass: 212.79 67-162/88-224 g LV Mass Index: 98.97 43-95/49-115 g/m2 LVOT Diam: 2.10 3.0+(-)1.3 cm 2D Systolic Function EF 4C: 58.50 >55% EF 2C: 63.40 >55% EF BiP: 60.30 >55% Mitral Valve MV Pk E: 0.86 MV PK A: 0.58 MV Decel Time: 234.00 E/A: 1.50 E'Lateral: 10.10 E'Medial: 8.16 E/E' Med: 10.60 E/E' Lat: 8.60 PHT: 69.00 MVA PHT: 3.19 Decel [address]: 3.69 Aortic Valve AoV Pk Dionicio: 1.55 AoV Mn Dionicio: 1.07 AoV VTI: 0.40 AoV Pk Grad: 10.00 Aov Mn Grad: 5.00 ION Cont.VTI: 2.05 LVOT LVOT Pk Dionicio: 1.00 LVOT Mn Dionicio: 0.73 LVOT VTI: 0.24 LVOT Pk Grad: 4.00 LVOT Mn Grad: 2.00 LVOT Diam: 2.10 LVOT Area: 3.46 Diastolic Function MV Pk E: 0.86 MV Pk A: 0.58 E/A: 1.50 E'Medial: 8.16 E/E' Med: 10.60 E' Laterial: 10.10 E/E' Lat: 8.60 Right Ventricle TAPSE (mm): 23.80 Tricuspid Valve RA Press: 3.00 Great Vessels Aorta Sinus of Valsalva: 3.74 2.0-3.5 cm Ao Asc: 4.00 2.1-3.4 cm Ao Arch: 3.30 Pulmonary Veins Pulm Vein S/D 1.00 Updated in Other Vendor System with Status of Final Miquel Jensen MD electronically signed on 06/23/2025 1:41:21 PM with status of Final
== END ==
LOC: HO.CARD 09:57
PROVIDERS: PCP Nurse Practitioner Family; Visit Provider Internal Medicine Cardiovascular Disease
DX: I49.9 Cardiac arrhythmia, unspecified (principal); I45.2 Bifascicular block
CPT/HCPCS: 93242; 93306; Q9957

== ENCOUNTER → 2025-06-23 09:59 | Outpatient (BNV) | payer MEDICARE, SELFPAY | PROVIDERS: PCP Nurse Practitioner Family; Visit Provider Internal Medicine Cardiovascular Disease | DX: I51.7 Cardiomegaly (principal); I77.810 Thoracic aortic ectasia | CPT/HCPCS: 93306 ==

== ENCOUNTER 2025-06-28 14:54 | Outpatient (AMB) | payer MEDICARE, SELFPAY ==
--- NOTE | 2025-06-28 14:57 | A.OFFPC_ITS ---
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 Allergies No Known Allergies Allergy (Verified 06/28/25 15:09) Medication List - Last Reconciled 06/28/25 by Virgilio Salazar CNP aspirin 81 mg PO DAILY bisacodyl (Dulcolax (bisacodyl)) 10 mg (2 x 5 mg) PO BEDTIME 2 days cholecalciferol (vitamin D3) 25 mcg PO DAILY levothyroxine 75 mcg PO DAILY 90 days naproxen sodium (Aleve) 1,100 mg PO DAILY sod sulf-pot chloride-mag sulf 1.479-0.188- 0.225 gram (Sutab) PO PER PKG DIR for colonoscopy prep Tobacco use date assessed: 06/28/25 Fall risk assessment: No Falls in past year Last assessed Fall Risk: 06/28/25 Dental Screening Dental Screen Date: 06/28/25 Did you have a dental visit in the last 12 months?: Yes Did you have a dental problem in the last 6 months where you did not have access to dental care?: No Was dental information given to patient?: Patient has dentist HPI HPI Comments History of Present Illness Details 79-year-old male presents with soreness inside his penis with certain movements and urinary urgency. His symptoms start a year ago and progressively worsened in the past 1-2 months. His symptoms are more severe with caffeine/coffee intake - he was drinking 6 cups of coffee daily, but have cut down to 1-2 cups daily. He endorses intermittent burning with urination. He denies hematuria or discharge with urination. He denies abdominal pain. He denies fever, chills, or fatigue. [facility] Medical History (Updated 06/28/25 @ 15:21 by Virgilio Salazar CNP) Laboratory tests ordered as part of a complete physical exam (CPE) Normal physical examination, routine Vaccine counseling Prostate cancer screening Colon cancer screening Arrhythmia Spine disorder Swelling Arthritis FH: thyroid disease SVT (supraventricular tachycardia) Surgical History (Updated 04/23/25 @ 14:48 by ADI Foley H/O laparoscopy H/O colonoscopy History of right hip replacement Social History (Updated 04/23/25 @ 14:43 by Dee Dee Kumar [facility]) Housing: House Alcohol intake: current Alcohol type: wine Comment: 4-5 oz wine daily Patient Tobacco Use Status: Never used Tobacco e-Cigarette/Vaping Use: Never Used Second Hand Smoke Exposure: No service: No Current occupational status: retired Cognitive needs: No Hearing needs: No Vision needs: No Questionnaire Thrive Questionnaire Date Thrive assessed: 11/17/24 I am a: Patient What is your living situation today?: I have a steady place to live Within the past 12 months, did the food you bought not last and you didn't have the money to get more?: Never true Within the past 12 months, did you worry whether your food would run out before you got money to buy more?: Never true Do you have trouble paying for medicines?: No Do you have trouble getting transportation to medical appointments?: No Do you have trouble paying your heating and electricity bill?: No Do you have trouble taking care of your child, family member or friend?: No Do you have trouble with day-to-day activities such as bathing, preparing meals, shopping, managing finances, etc.?: No Are you currently unemployed and looking for a job?: No Are you interested in more education?: No Please select the resources that you would like help with: None Currently or been in a relationship where the following occur: No concerns reported THRIVE Score: 0 VIKI-7 AMB Questionnaire VIKI-7 Date VIKI - 7 assessed: 11/17/24 Source: Developed by Drs. Mehul Ndiaye, Keturah Garcia, Samuel Us and colleagues, with an educational ronald from [employer]. Review of Systems Const Details: Const Denies chills, Denies fatigue, Denies fever(s), Denies headache(s) and Denies weakness ENT Denies dizziness and Denies headache(s) Card Denies chest pain, Denies lightheadedness, Denies dyspnea and Denies other (Pa lpitations) Resp Denies cough, Denies dyspnea, Denies wheezing and Denies other ( shortness of breath) GI Denies abdominal pain, Denies melena, Denies hematochezia, Denies change in bowel habits, Denies dyspepsia and Denies nausea Reports as per HPI Musc Denies abnormal gait, Denies myalgias, Denies arthralgias, Denies numbness and Denies tingling Skin/Breast Denies rash, Denies unusual bruising and Denies wounds Neuro Denies abnormal gait, Denies dizziness, Denies headache(s), Denies memory loss, Denies numbness, Denies Sensory deficit (Neuro), Denies tingling and Denies weakness Psych Denies anxiety, Denies depression, Denies memory loss Endo Denies cold intolerance, Denies fatigue, Denies heat intolerance, Denies polydipsia and Denies polyuria Aller/Immun Denies wheezing Physical exam (Primary Care) Vital Signs: Last Vital Signs Temp 97.6 F 06/28/25 15:03 Pulse 61 06/28/25 15:03 Resp 16 06/28/25 15:03 BP 134/64 06/28/25 15:03 Pulse Ox 100 06/28/25 15:03 Oxygen Delivery Method Room Air 06/28/25 15:03 BMI result Body Mass Index 31.3 Tobacco/Smoking Status: Tobacco use Status Tobacco use date assessed 06/28/25 06/28/25 15:05 Patient Tobacco Use Status Never used Tobacco 06/28/25 14:59 e-Cigarette/Vaping Use Never Used 06/28/25 14:59 Thrive Assessment: Date of Thrive Assessment Date Thrive assessed 11/17/24 06/28/25 14:59 Currently or been in a relationship where the following occur: No concerns reported Const Other: General: no acute distress and well developed Nutritional Appearance: well nourished Orientation/consciousness: patient oriented x3 HENMT Head: Yes normocephalic and Yes atraumatic Eyes General: appearance normal, both eyes and all related structures Pupils: Equal, round and reactive pupils present EOM: EOMs intact bilaterally Resp Effort & Inspection: normal respiratory effort Auscultation: clear to auscultation bilaterally Cardio Rate: regular rate Rhythm: regular rhythm Heart sounds: S1 normal heart sound present, S2 normal heart sound present, no gallops, no murmurs and no rubs GI Palpation (GI): No Abdominal aortic bruit present, Soft to palpation, nontender, No hepatosplenomegaly present and No Rebound tenderness present Auscultation: normal bowel sounds General: Yes no CVA tenderness Back/Spine/Pelvis Back: no CVA tenderness Cervical Spine: cervical ROM normal and No Cervical spine tenderness Thoracic/Lumbar Spine: thoraco-lumbar ROM normal, No pain with thoraco-lumbar ROM, No thoracic spinal tenderness and No lumbar spinal tenderness Extrem General: Yes normal to inspection, No edema and No calf tenderness Skin General: warm and dry. Normal skin color. Normal skin turgor Neuro General: patient oriented x3, gait normal and no focal neuro deficit Cranial nerves: Yes Equal, round and reactive pupils present Cognition (Neuro): normal cognition Gait exam (Neuro): Normal gait present Sensory Exam: No Sensory deficit (Neuro) Psych Appearance: grossly normal Affect: normal affect Attitude: cooperative Thought process: Normal thought process present Coding Level of Care Code Est Pt Level 4 (80183) Diagnoses Lower urinary tract symptoms (LUTS) R39.9 Assessment & Plan Assessment & Plan (1) Lower urinary tract symptoms (LUTS): Code(s): R39.9 - Unspecified symptoms and signs involving the genitourinary system Category: Medical Plan: 79-year-old male presents with soreness inside his penis with certain movements and urinary urgency. His symptoms start a year ago and progressively worsened in the past 1-2 months. His symptoms are more severe with caffeine/coffee intake - he was drinking 6 cups of coffee daily, but have cut down to 1-2 cups daily. He endorses intermittent burning with urination. He denies hematuria or discharge with urination. He denies abdominal pain. He denies fever, chills, or fatigue. No CVA tenderness. Causes may include UTI, cystitis, overactive bladder, BPH. Urinalysis/culture ordered. Will review results and make changes as needed. May referred to Urology. Adequate hydration encouraged. Encouraged to cut down on caffeine intake. Verbalized understanding and agreed with the plan. Orders: Orders UA CC w/rflx Micro + Cult Today R39.9 - Unspecified symptoms and signs involving the genitourinary system
[2025-06-28 15:03] VITALS: BP 134/64; PULSE 61; RESP 16; TEMP 36.4; O2SAT 100; BMI 31.3
== END 2025-06-28 15:34 | disposition home or self-care (01) ==
LOC: HO.HMCFM 14:54
PROVIDERS: PCP Nurse Practitioner Family; Visit Provider Nurse Practitioner Family
DX: R39.9 Unspecified symptoms and signs involving the genitourinary system (principal)

== ENCOUNTER 2025-06-28 14:54 | Outpatient (REF) | payer MEDICARE, SELFPAY ==
[2025-06-28 18:40] LABS: Appearance Urine Clear; Glucose Urine UA Negative (Negative); PH 5.5 (5.0-9.0); Specific Gravity - Urine 1.020 (1.005-1.025); UMIC TRIGGER UACC YES
[2025-06-28 18:46] LABS: UACC Culture Trigger YES
== END 2025-06-28 14:55 | disposition home or self-care (01) ==
LOC: HO.WFDLDS 14:54
PROVIDERS: PCP Nurse Practitioner Family; Visit Provider Nurse Practitioner Family
DX: Z00.00 Encounter for general adult medical examination without abnormal findings (principal); R39.9 Unspecified symptoms and signs involving the genitourinary system; Z79.82 Long term (current) use of aspirin; Z79.890 Hormone replacement therapy; Z79.1 Long term (current) use of non-steroidal anti-inflammatories (NSAID); Z79.899 Other long term (current) drug therapy
CPT/HCPCS: 81001; 87086; 99212

== ENCOUNTER 2025-08-02 14:59 | Outpatient (AMB) | payer MEDICARE, SELFPAY ==
--- NOTE | 2025-08-02 15:18 | AM.OFFVISNUR ---
Intake Visit Reasons: Flu Shot Allergies No Known Allergies Allergy (Verified 06/28/25 15:09) Office Procedures Flu Questionnaire Does the patient have a severe egg allergy?: No Does the patient have severe life threatening allergies?: No Does the patient have a fever or illness today?: No Has the patient ever had Guillain-Keshena Syndrome?: No Has the patient ever had any past reaction to a flu shot?: No Immunizations Fluarix [id number] (PF) 45 mcg (15 mcg x 3)/0.5 mL IM syringe Performing Provider: Virgilio Salazar CNP Performing Location: [facility] [place] [facility] Administered by: Tashia Thomas RN on 08/02/25 15:20 Dose Route Admin Location Dispensed Lot Number Expiration Date [facility] 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
== END 2025-08-02 17:05 ==
LOC: HO.HMCFM 14:59
PROVIDERS: PCP Nurse Practitioner Family; Visit Provider Nurse Practitioner Family
DX: Z23 Encounter for immunization (principal)

== ENCOUNTER → 2025-08-02 14:59 | Outpatient (BNVA) | payer MEDICARE, SELFPAY | PROVIDERS: PCP Nurse Practitioner Family; Visit Provider Nurse Practitioner Family | DX: Z23 Encounter for immunization (principal) | CPT/HCPCS: 90471; 90656 ==

== ENCOUNTER 2025-08-17 11:32 | Outpatient (AMB) | payer MEDICARE, SELFPAY ==
[2025-08-17 12:24] VITALS: BP 116/66; PULSE 52; TEMP 36.6; O2SAT 100; BMI 31.6
--- NOTE | 2025-08-17 12:24 | AM.OFFWIN_ITS ---
Intake Vital Signs 08/17/25 12:24 Height 5 ft 10 in Weight 220 lb BMI 31.6 BP 116/66 Blood Pressure Location Lt brachial Position Sitting Pulse 52 Pulse Source Pulse Oximeter Temp 97.8 F Temp Source Oral Pulse Oximetry (%) 100 Oxygen Delivery Method Room Air Intake Visit Reasons: EP-urinary issues Intake Note: pt presents with discomfort when peeing and urine frequency and also found a blood clot in the toilet when peeing yesterday Patient Tobacco Use Status: Never used Tobacco Allergies No Known Allergies Allergy (Verified 08/17/25 12:31) Do you need a note to return to daycare/school/sports/work: No HPI HPI Comments History of Present Illness Details History - The patient is an 79-year-old male pre senting with poorly controlled urination. - He reports episodes of urinary urgency , particularly after drinking coffee, leading to incontinence for which he wears a pad. - He also experiences some burning with urination. - The patient passed a blood clot yester day and has had four or five episodes of gross hematuria since last November. - His first episode of hematuria was abo ut five years ago, but he has not seen a specialist for the recent occurrences. - He denies any associated back pain, na usea, or fevers. - Past medical history is significant fo r two episodes of kidney stones over the last several years, with no recent occurrences. - He takes low-dose aspirin. - His primary care physician is leaving the practice, and he is in the process of being assigned a new one. - He denies chest pain, SOB, abd pain, v omiting, discharge, or penile pain. Physical Exam General: Cooperative, healthy appearing, comfortable, no acute distress and well developed Cardiac: Normal S1 and S2. RRR, no M/R/G noted. Respiratory: Normal respiratory effort and able to speak in complete sentences. Clear to auscultation bilaterally. No w/r/r noted. Skin: No rashes or lesions noted. GI: Normal inspection. Normal BS noted. Soft, non-tender, non-distended. No TTP of all 4 quadrants. No guarding or rebound tenderness noted. Back: Negative CVA bilaterally Patient was informed and verbally consented to the use of an ambient scribe for clinic note documentation during this visit. [facility] Medical History (Updated 06/28/25 @ 15:21 by Virgilio Salazar CNP) Laboratory tests ordered as part of a complete physical exam (CPE) Normal physical examination, routine Vaccine counseling Prostate cancer screening Colon cancer screening Arrhythmia Spine disorder Swelling Arthritis FH: thyroid disease SVT (supraventricular tachycardia) Surgical History (Updated 04/23/25 @ 14:48 by SHERYL Foley) H/O laparoscopy H/O colonoscopy History of right hip replacement Social History (Updated 04/23/25 @ 14:43 by Dee Dee Kumar [facility]) Housing: House Alcohol intake: current Alcohol type: wine Comment: 4-5 oz wine daily Patient Tobacco Use Status: Never used Tobacco e-Cigarette/Vaping Use: Never Used Second Hand Smoke Exposure: No service: No Current occupational status: retired Cognitive needs: No Hearing needs: No Vision needs: No Review of Systems Const All systems reviewed & are unremarkable except as noted in HPI and below Physical Exam Vital Signs: Last Vital Signs Temp 97.8 F 08/17/25 12:24 Pulse 52 08/17/25 12:24 BP 116/66 08/17/25 12:24 Pulse Ox 100 08/17/25 12:24 Oxygen Delivery Method Room Air 08/17/25 12:24 BMI result Body Mass Index 31.6 Results AMB Urinalysis, Automated UA Leukoctes 0 Arvind/uL Last Edit by Davina Pacheco CMA on 08/17/25 12:39 UA Nitrite Negative Last Edit by Davina Pacheco CMA on 08/17/25 12:39 UA Urobilinogen 0.2 mg/dL Last Edit by Davina Pacheco CMA on 08/17/25 12:3 9 UA Protein 30 mg/dL Last Edit by Davina Pacheco CMA on 08/17/25 12:39 1+ Davina Pacheco 08/17/25 12:39 UA pH 6.0 Last Edit by Davina Pacheco CMA on 08/17/25 12:39 UA Blood 200 Augusto/uL Last Edit by Davina Pacheco CMA on 08/17/25 12:39 3+ Davina Pacheco 08/17/25 12:39 UA Specific Ary 1.030 Last Edit by Davina Pacheco CMA on 08/17/25 12: 39 UA Ketone Negative Last Edit by Davina Pacheco CMA on 08/17/25 12:39 UA Bilirubin 0 mg/dL Last Edit by Davina Pacheco CMA on 08/17/25 12:39 UA Glucose 0 mg/dL Last Edit by Davina Pacheco CMA on 08/17/25 12:39 Results Reviewed Results Reviewed: Laboratory Last Values Urine pH (Auto) 6.0 08/17/25 12:38 Specific Ary (Auto) 1.030 08/17/25 12:38 Urine Protein (Auto) 30 mg/dL H* 08/17/25 12:38 Glucose (UA)(Auto) 0 mg/dL 08/17/25 12:38 Urine Ketones (Auto) Negative 08/17/25 12:38 Urine Blood (Auto) 200 Augusto/uL H* 08/17/25 12:38 Urine Nitrite (Auto) Negative 08/17/25 12:38 Urine Bilirubin (Auto) 0 mg/dL 08/17/25 12:38 Urine Urobilinogen (Auto) 0.2 mg/dL 08/17/25 12:38 Leukocyte Esterase (Auto) 0 Arvind/uL 08/17/25 12:38 Assessment & Plan Assessment & Plan (1) Hematuria: Code(s): R31.9 - Hematuria, unspecified Qualifiers: Hematuria type: unspecified type Qualified Code(s): R31.9 - Hematuria, unspecified Plan Most likely gross hematuria vs UTI vs stone UA 3+blood Plan - The patient will be started on empiric antibiotic therapy for a suspected urinary tract infection (UTI) pending culture results. - A urine sample will be sent for culture and sensitivity analysis; the antibiotics will be stopped if the culture is negative. - A referral will be placed for the patient to see a urology specialist for evaluation of hematuria and blood clots. - The patient was advised to increase his water intake and drink cranberry juice to help with his symptoms. - The patient's primary care physician is changing, and he was advised to ask the hotel front desk clerk about his new provider assignment. - The patient was instructed to seek emergency care if he develops worsening symptoms, including increased bleeding, severe pain, fever, or nausea. - The patient will be contacted with the results of his urine culture. - The patient was advised to call the clinic if he has not been contacted by the urology office by the end of the week. Orders: Orders AMB Urinalysis Automated Today Z13.9 - Encounter for screening, unspecified Urine Culture Today N39.0 - Urinary tract infection, site not specified Referrals Urology Referral R31.9 - Hematuria, unspecified Medications: New cefuroxime axetil 500 mg PO Q12H 10 tabs 0RF Coding Level of Care Code Est Pt Level 3 (14193) Diagnoses Hematuria, unspecified type R31.9 Hematuria type: unspecified type
== END 2025-08-17 13:42 | disposition home or self-care (01) ==
PROVIDERS: PCP Nurse Practitioner Family; Visit Provider Physician Assistant Medical
DX: R31.9 Hematuria, unspecified (principal); Z13.9 Encounter for screening, unspecified

== ENCOUNTER 2025-08-17 11:32 | Outpatient (REF) | payer MEDICARE, SELFPAY | END 2025-08-17 11:33 | disposition home or self-care (01) | LOC: HO.LAB 11:32 | PROVIDERS: PCP Nurse Practitioner Family | DX: R35.0 Frequency of micturition (principal); N39.0 Urinary tract infection, site not specified; R31.9 Hematuria, unspecified | CPT/HCPCS: 81003; 87086; 87088; 87186; 99212 ==

== ENCOUNTER 2025-09-07 11:16 | Outpatient (REF) | payer MEDICARE, SELFPAY | END 2025-09-07 11:17 | disposition home or self-care (01) | LOC: HO.LNP 11:16 | PROVIDERS: PCP Nurse Practitioner Family; Visit Provider Physician Assistant | DX: N39.0 Urinary tract infection, site not specified (principal); R31.9 Hematuria, unspecified; R32 Unspecified urinary incontinence | CPT/HCPCS: 81003; 87086; 99212 ==

== ENCOUNTER 2025-09-07 11:16 | Outpatient (AMB) | payer MEDICARE, SELFPAY ==
[2025-09-07 11:20] VITALS: BP 114/72; PULSE 52; TEMP 36.8; O2SAT 96; BMI 31.9
--- NOTE | 2025-09-07 11:20 | AM.OFFWIN_ITS ---
Intake Vital Signs 09/07/25 11:20 Height 5 ft 10 in Weight 222 lb BMI 31.9 BP 114/72 Blood Pressure Location Rt brachial Position Sitting Pulse 52 Pulse Source Pulse Oximeter Temp 98.2 F Temp Source Oral Pulse Oximetry (%) 96 Oxygen Delivery Method Room Air Intake Visit Reasons: EP-urine issues Intake Note: Patient returns c/o continuing urinary issues that went away but have returned. Patient was seen previously for UTI & treated with ABX & states 4 days after completing medication, symptoms returned. Patient Tobacco Use Status: Never used Tobacco Allergies No Known Allergies Allergy (Verified 09/07/25 11:23) HPI HPI Comments History of Present Illness Details History of Present Illness - The patient is an 79-year-old male pre senting with a recurrence of urinary tract infection symptoms. - He was evaluated here on August 17 for urinary symptoms including soreness, burning, hematuria, and urinary incontinence. - A urine culture from that visit grew E . coli, and he was treated with Cefuroxime. - Following antibiotic treatment, his sy mptoms resolved for approximately one week but have gradually recurred over the last four to five days. - His primary returning symptom is signi ficant urinary incontinence, requiring the use of five to six pads yesterday. - He notes that the inability to hold [facility] urine has been a gradually worsening issue over the past six months. - The patient denies any fever, nausea, or vomiting but admits to minor back pain, which he attributes to recent physical activity. - He saw a urologist about a year ago fo r his urinary complaints but felt the issue was not adequately addressed. - A referral to urology was placed at [facility] last visit but it never got scheduled. [facility] Medical History (Updated 06/28/25 @ 15:21 by Virgilio Salazar CNP) Laboratory tests ordered as part of a complete physical exam (CPE) Normal physical examination, routine Vaccine counseling Prostate cancer screening Colon cancer screening Arrhythmia Spine disorder Swelling Arthritis FH: thyroid disease SVT (supraventricular tachycardia) Surgical History (Updated 04/23/25 @ 14:48 by SHERYL Foley) H/O laparoscopy H/O colonoscopy History of right hip replacement Social History (Updated 04/23/25 @ 14:43 by PAUL Lema) Housing: House Alcohol intake: current Alcohol type: wine Comment: 4-5 oz wine daily Patient Tobacco Use Status: Never used Tobacco e-Cigarette/Vaping Use: Never Used Second Hand Smoke Exposure: No service: No Current occupational status: retired Cognitive needs: No Hearing needs: No Vision needs: No Review of Systems Narrative Review of Systems - Constitutional: Denies fever. - Gastrointestinal: Denies nausea and vomiting. - Genitourinary: Reports urinary soreness, burning, urinary incontinence, and a history of hematuria. - Musculoskeletal: Reports minor back pain. All systems reviewed and are unremarkable except as noted in HPI Physical Exam Exam Exam: Physical Exam General: Cooperative, healthy appearing, comfortable, no acute distress and well developed Orientation: Patient oriented x3 Limitations: No limitations Head: Normal to inspection Ears: Hearing grossly normal bilaterally Nose: Normal External nose present Face and sinus: Normal facial exam Eyes: Appearance normal, both eyes and all related structures Neck: Normal visual inspection and Yes full ROM Respiratory: Normal respiratory effort and able to speak in complete sentences. Skin: No rashes or lesions noted Neuro: Patient oriented x3 Extremities: Normal to inspection Vital Signs: Last Vital Signs Temp 98.2 F 09/07/25 11:20 Pulse 52 09/07/25 11:20 BP 114/72 09/07/25 11:20 Pulse Ox 96 09/07/25 11:20 Oxygen Delivery Method Room Air 09/07/25 11:20 BMI result Body Mass Index 31.9 Results AMB Urinalysis, Automated UA Leukoctes Arvind/uL Last Edit by Davina Pacheco CMA on 09/07/25 12:10 UA Nitrite Last Edit by Davina Pacheco CMA on 09/07/25 12:10 UA Urobilinogen 0.2 mg/dL Last Edit by Davina Pacheco CMA on 09/07/25 12:1 0 UA Protein 15 mg/dL Last Edit by Davina Pacheco CMA on 09/07/25 12:10 UA pH 6.0 Last Edit by Davina Pacheco CMA on 09/07/25 12:10 UA Blood 200 Augusto/uL Last Edit by Davina Pacheco CMA on 09/07/25 12:10 3+ Davina Pacheco 09/07/25 12:10 UA Specific [place] 1.015 Last Edit by Davina Pacheco CMA on 09/07/25 12: 10 UA Ketone Negative Last Edit by Davina Pacheco CMA on 09/07/25 12:10 UA Bilirubin 0 mg/dL Last Edit by Davina Pacheco CMA on 09/07/25 12:10 UA Glucose 0 mg/dL Last Edit by Davina Pacheco CMA on 09/07/25 12:10 Results Reviewed Results Reviewed: Laboratory Last Values Urine pH (Auto) 6.0 09/07/25 12:09 Specific [place] (Auto) 1.015 09/07/25 12:09 Urine Protein (Auto) 15 mg/dL H 09/07/25 12:09 Glucose (UA)(Auto) 0 mg/dL 09/07/25 12:09 Urine Ketones (Auto) Negative 09/07/25 12:09 Urine Blood (Auto) 200 Augusto/uL H* 09/07/25 12:09 Urine Bilirubin (Auto) 0 mg/dL 09/07/25 12:09 Urine Urobilinogen (Auto) 0.2 mg/dL 09/07/25 12:09 Assessment & Plan Assessment & Plan (1) Recurrent UTI: Code(s): N39.0 - Urinary tract infection, site not specified (2) Hematuria: Code(s): R31.9 - Hematuria, unspecified Qualifiers: Hematuria type: unspecified type Qualified Code(s): R31.9 - Hematuria, unspecified Plan: A referral to Urology was sent on August 17, I have reached out to the urology office and reopened the workload item to get him scheduled to workup the hematuria. Plan Patient was informed and verbally consented to the use of an ambient scribe for clinic note documentation during this visit. - The patient presents with recurrent UTI symptoms, including soreness and burning; recent treatment with Cefuroxime for a culture-proven E. coli infection. - Symptoms initially resolved for about a week before returning. - A urine specimen will be collected today for urinalysis and culture to reassess for infection. - The patient has chronic, worsening urinary incontinence that has been present for approximately six months and has acutely worsened with the UTI, requiring multiple pads daily. - Benign prostatic hyperplasia (BPH) is considered a likely contributing factor given the patient's age. - A referral to urology was found to be closed; it has been reopened, and a message has been sent to the urology department to schedule an appointment for further evaluation. - UA with neg leuks, neg nitrites, 3+ blood. Discussed this with the patient and he prefers to start with antibiotic treatment and see what the urine culture results as he is incontinent of urine and this is negatively affecting his lifestyle. He understands if the urine culture does not grow anything, we will call him and ask him to stop the antibiotic. - urine culture has been sent Orders: Orders AMB Urinalysis Automated Today Z13.9 - Encounter for screening, unspecified Medications: New cefuroxime axetil 500 mg PO Q12H 10 tabs 0RF Coding Level of Care Code Est Pt Level 3 (11823) Diagnoses Recurrent UTI N39.0 Hematuria, unspecified type R31.9 Hematuria type: unspecified type
== END 2025-09-07 13:34 | disposition home or self-care (01) ==
PROVIDERS: PCP Nurse Practitioner Family; Visit Provider Physician Assistant
DX: N39.0 Urinary tract infection, site not specified (principal); R31.9 Hematuria, unspecified; Z13.9 Encounter for screening, unspecified